=== PATIENT | female | born 1950 | race Caucasian/White ===

== ENCOUNTER 2017-02-17 07:08 | Day surgery (SDC) | payer MEDICARE, OTHER ==
--- NOTE | 2017-02-11 09:50 | PREOP HISTORY & PHYSICAL ---
HISTORY: 66 year old female here for evaluation of more difficulty with night vision (even worse when snowing or raining) for about the past year - worse over the past 6 months. She avoids night driving anymore. She notes significant "starbursts or haloes" around lights at night as well as trouble with glare recovery. This is bad enough that she has to stop the car and have her drive when the symptoms are bothersome. She denies any problems with reading, but does have some trouble with seeing the sports scores on the television. She is quite aware that the right eye is worse than the left eye. The current glasses are about 1 year old. She was recently seen by her print graphic designer, (Dr. Garcia at [facility] in [place]) who told the patient that she had significant cataracts and that he could not improve her vision significantly with new glasses, and suggested she consider cataract surgery. PAST OCULAR HISTORY: "Cataracts", Glasses OCULAR MEDICATIONS: None PAST MEDICAL HISTORY: Basal cell carcinoma, leg (C44.801)2014 Left thigh. Removed by Dr. Haro. Chronic kidney disease (CKD) stage G3a/A1, moderately decreased glomerular filtration rate (GFR) between 45-59 mL/min/1.73 square meter and albuminuria creatinine ratio less than 30 mg/g (N18.3) Urines have appeared normal. Patient does not have any obvious cause for the CKD at this point. Microalbumin/ creatinine ratio ordered to assess. Consider renal ultrasound. Gastroesophageal reflux disease without esophagitis (K21.9) Mild reflux, takes TUMs occasionally, Zantac. 2. Modify diet, and take Ranitidine on a daily basis , at least for now. 3. No red flag symptoms. Still taking Ranitidine intermittently, however. 4. Notes reflux is improved with weight loss. Hyperlipidemia with target LDL less than 100 (E78.5) Fasting lipid profile and hepatic panel ordered in follow up. Seems to be doing well with the medication, but her dietary compliance has fallen off. Encouraged to resume good dietary habits. 2. Doing reasonably well, but gains weight, and needs to lose weight and exercise more regularly. Follow up in about 6 months, sooner if needed. 3. Fasting lipid profile and hepatic panel ordered in follow up. Patient has lost weight, which is excellent. 4. Slight weight increase, with the patient tending to be in a loss/gain cycle most of the time. Fasting lipid profile and hepatic panel ordered in follow up. 5. Patient has lost weight, at least a few pounds, which is excellent. Fasting lipid profile and hepatic panel ordered in follow up. Osteopenia (733.90) (M85.80) Osteopenia, with excellent response to Alendronate and calcium, with increase in density from -2.4 to -1.7. I suggested patient complete this year (to 04/2011) and then stop taking it, and continue on calcium alone. Patient is exercising regularly with hiking and walking. 2. Continues to take calcium and vitamin D, follow up bone density is due and ordered. ALLERGIES: Sulfa Headache. severe FAMILY HISTORY: Mother . @ 86,of PMR, RA, OA, COPD, TIA, History of Glaucoma SOCIAL HISTORY: Alcohol Use Occasional alcohol use. Tobacco Use Never smoker. Vehicle Driving Yes. CURRENT MEDICATIONS: Aspirin (81MG Tablet, 1 Oral daily) Active. Calcium 600/Vitamin D (823-636EX-KGRP Tablet, 2 Oral daily) Active. Estrace (0.1MG/GM Cream, 1 (one) Vaginal twice weekly, Taken starting 2015) Active. (please disepense quantity sufficient for 90 days) Fexofenadine HCl (180MG Tablet, 1 Oral daily as needed for allergies) Active. Multivitamin (1 Oral daily) Active. Pravastatin Sodium (40MG Tablet, 1 (one) Oral daily, Taken starting 10/12/2016 ) Active. (Faxed to [facility] Ranitidine HCl (150MG Tablet, 1 tablet Oral QD PRN) Active. Medications Reconciled PAST SURGICAL HISTORY: History of reduction of open fracture (Z87.81)1985 Left femur Note:The patient's medical problem list was briefly reviewed, but the specific individual medical problems with their attached detailed narratives and plans were not reviewed, and are being followed and managed by Dr. Salcedo. REVIEW OF SYSTEMS: General Not Present- Fever. Skin Not Present- New Lesions, Skin Cancer and Skin Problems. HEENT Present- Allergies, Blurred Vision, Decreased Night Vision and Visual Disturbances (floaters). Not Present- Decreased Hearing, Eye Pain, Sinusitis and Sleep Apnea. Respiratory Not Present- Asthma, Chronic Cough, Emphysema and Shortness of Breath. Breast Not Present- Breast Cancer. Cardiovascular Present- Heart Problems and Hyperlipidemia. Not Present- Angina, Heart Stent and Hypertension. Gastrointestinal Present- Heartburn. Not Present- PUD. Female Genitourinary Not Present- Kidney Problems. Musculoskeletal Not Present- Joint Pain. Neurological Not Present- Decreased Memory, Headaches, Stroke and Vertigo. Psychiatric Not Present- Anxiety and Depression. Endocrine Not Present- Diabetes and Thyroid Problems. Hematology Not Present- Bleeding Problems and Blood Clots. Note: Reviewed by Dr. Silva. PHYSICAL EXAMINATION: 01/25/2017 4:32 PM Pulse: 68 (Regular) P.OX: 93% (Room air) BP: 112/79 (Sitting, Left Wrist, Small) Chest and Lung Exam Auscultation Breath sounds - Clear and Symmetric throughout. Cardiovascular Auscultation Rhythm - Regular. Heart Sounds - Normal heart sounds. Murmurs & Other Heart Sounds - Auscultation of the heart reveals - No Murmurs. OCULAR EXAMINATION: VISUAL ACUITY: with correction (Glasses) OD 20/50 OS 20/20-2 NEAR J1 at 14" WORKING Rx: OD +1.00 + 1.00 x 004 OS +0.50 + 1.75 x 010 ADD + 2.25 (Progressive lens) MANIFEST REFRACTION: OD +0.25 + 1.25 x 004 (20/30- BAT 20/100+1) Slightly better vision in trial frames OS [place] + 1.00 x 014 (20/15 BAT 20/25) Better vision in trial frames ADD + 2.50 (J1+ at 14") Better near vision in trial frames than previous Rx CONFRONTATIONAL VISUAL VILLALOBOS: Normal to counting fingers in four quadrants OU PUPILS: Round and equal OU with no afferent pupillary defect seen EXTERNAL: Normal OU EXTRA-OCULAR MUSCLES: Versions full OU - orthotropic at both distance and near SLIT LAMP EXAM: LIDS/LASHES: Normal OU CONJUNCTIVA: Quiet OU CORNEA: Clear OU AC: Deep and quiet OU IRIS: Normal OU PUPILS: Round OU - dilated to about 5 mm OD and 7 mm OS LENS: 2+ nuclear sclerosis with 2-3+ diffuse cortical cataract changes OD. 1- 2+ nuclear sclerosis with early cortical cataract changes OS ANTERIOR VITREOUS: No anterior vitreous cells or pigment seen OU TONOMETRY: TIME: 2:57 PM OD: 16 mm Hg OS: 16 mm Hg DILATING gtt: Phenylephrine 2.5% + Tropicamide 1% FUNDUS: C/D: 0.5 OD, 0.4 OS DISCS: Sharp with clear disc margins OU MACULA: Absent foveal reflex OU VESSELS: Normal OU PERIPHERY: Normal OU KERATOMETRY: OD 45.72 / 46.48 x 008 OS 45.46 / 45.98 x 026 AXIAL LENGTH: OD 22.71 +/- 0.007 OS 23.00 +/- 0.011 IMPRESSION: Cataract cortical, senile, bilateral (H25.013) Story: Visually significant cataract OD >> OS - discussed with patient today who is quite bothered by her current vision and would like to consider cataract surgery in the right eye. We discussed the refractive goals today and the patient would like to be corrected to a near-plano spherical equivalent postoperatively OD. Pre-operative optical coherence tomography - this shows normal central retinal structures and macula OU. There is no evidence of epiretinal membrane formation, drusen, sub-retinal fluid, or macular edema OU. Early cataract OS - probably not visually significant at this time (discussed with patient today). PLAN: Cataract extraction with intra-ocular lens OD. Lid soaks and scrubs BID OU (pre-operative blepharitis protocol and antibiotic ointment instructions handout given to patient today). Erythromycin ophthalmic ointment q hs OU as blepharitis prophylaxis (an e-Rx with refills x [address] [facility] [place] ([phone]) today). BIOMETRY, OPHTHALMIC, BY PARTIAL COHERENCE INTERFEROMETRY (24636) Started Erythromycin 5MG/GM, Apply 1/8 inch Ointment to the eyelashes of both eyes at bedtime, 1 Tube, 01/25/2017, Ref. x1. Started Zymaxid 0.5%, 1 drop(s) four times daily to the operated eye, after surgery, 1 Bottle, 01/25/2017, Ref. x1. Started PrednisoLONE Acetate 1%, 1 drop(s) four times daily in the operated eye , after surgery, 10 Milliliter, 01/25/2017, Ref. x1. MTDD
[~2017-02-17 07:08] MED LIST: APRACLONIDINE 0.5% OPHTH 5 ML BTL OP ONE; BUPIVACAINE HCL/PF 0.75% 10 ML VIAL OP ONE; CIPROFLOXACIN 0.3% OPHTH 50 DROP/5 ML BTL OP SCH; CYCLOPENTOLATE HCL 1% OPHTH 2 ML BTL OP SCH; FLURBIPROFEN 0.03% OPHTH 2.5 ML BTL OP SCH; PHENYLEPHRINE 2.5% OPHTH 10 DROP/2 ML BTL OP SCH
[2017-02-17] MEDS ORDERED: BUPIVACAINE HCL/PF 0.75% 10 ML VIAL ONE (07:45)
[2017-02-17] MEDS ORDERED: CYCLOPENTOLATE HCL 1% OPHTH 2 ML BTL ONE (07:46)
[2017-02-17] MEDS ORDERED: APRACLONIDINE 0.5% OPHTH 5 ML BTL ONE (07:46)
[2017-02-17] MEDS ORDERED: FLURBIPROFEN 0.03% OPHTH 2.5 ML BTL ONE (07:46)
[2017-02-17] MEDS ORDERED: CIPROFLOXACIN 0.3% OPHTH 50 DROP/5 ML BTL ONE (07:46)
[2017-02-17] MEDS ORDERED: PHENYLEPHRINE 2.5% OPHTH 10 DROP/2 ML BTL ONE (07:46)
[2017-02-17 07:54] VITALS: TEMP 96.8
[2017-02-17] MEDS ORDERED: BACITRACIN OPHTH OINTMENT 3.5 GM TUBE ONE (08:43)
[2017-02-17] MEDS ORDERED: LIDOCAINE HCL/PF 1% 30 ML VIAL ONE (08:43)
[2017-02-17] MEDS ORDERED: CHONDROITIN/HYALURONIDATE OPHT 0.5 ML KIT ONE (08:43)
[2017-02-17] MEDS ORDERED: KETOROLAC 0.45% OPHTH 1 DROP/EACH DROPERETTE ONE (08:43)
[2017-02-17] MEDS ORDERED: MIDAZOLAM HCL 2 MG/2 ML VIAL ONE (09:13)
[2017-02-17 09:41] VITALS: BP 134/85; PULSE 62; RESP 16; O2SAT 97
--- NOTE | 2017-02-17 13:22 | OPERATIVE REPORT ---
DATE OF SURGERY: 02/17/2017. SURGEON: Chago Silva MD ANESTHESIA: Topical with monitored anesthesia care. PREOPERATIVE DIAGNOSIS: Cataract, right eye. POSTOPERATIVE DIAGNOSIS: Cataract, right eye. OPERATION PERFORMED: Cataract extraction by phacoemulsification with posterior chamber intraocular lens, right eye. COMPLICATIONS: None. PROCEDURE: The patient was brought to the operating room where she was placed in the supine position. After the instillation of additional tetracaine drops in the right eye, the eye was prepped and draped in the usual sterile ophthalmic manner. A lid speculum was placed in the right eye, after which an inferior paracentesis was fashioned with 1-mm steel keratome, and 0.2 mL of 1% nonpreserved lidocaine was injected intracamerally followed by Viscoat. A temporal clear corneal incision of 3-mm width was fashioned with a steel keratome. A continuous curvilinear capsulorrhexis was fashioned with a bent- needle cystitome and Utrata forceps under Viscoat. Hydrodissection was carried out with balanced salt solution on an intraocular cannula. The nucleus was noted to rotate freely. Phacoemulsification proceeded in a two-handed fashion utilizing typical phacoemulsification times and johnson, as the nucleus was noted to be 2+ dense. Residual cortical material was then removed with the automated irrigation-aspiration handpiece. The anterior chamber and capsular bag were then reinflated with Provisc, after which an AcrySof model SA60AT foldable acrylic intraocular lens of 21.0 diopters power was placed into the capsular bag. The haptics were rotated with a Y hook and the intraocular lens was noted to center well. Residual viscoelastic was then removed with the automated irrigation-aspiration handpiece , after which the wound edges were hydrated with balanced salt solution. The intraocular pressure at the conclusion of the procedure was physiologic, and there was no evidence of wound leakage upon testing with a Weck Justina sponge. Acular drops and bacitracin ointment were placed in the right eye, and the patient was brought to the recovery area, having tolerated the procedure well. She was given full postoperative instructions. DARLENE
== END 2017-02-17 09:40 | disposition home or self-care (01) ==
LOC: SDS 07:08
PROVIDERS: ATTEND Ophthalmology
DX: H25.011 Cortical age-related cataract, right eye (principal); K21.9 Gastro-esophageal reflux disease without esophagitis; M85.89 Other specified disorders of bone density and structure, multiple sites; N18.3 Chronic kidney disease, stage 3 (moderate); E78.5 Hyperlipidemia, unspecified; Z79.899 Other long term (current) drug therapy
CPT/HCPCS: J0171; J2250